=== PATIENT | male | born 1980 | race Caucasian/White ===

== ENCOUNTER 2017-11-22 01:00 | Emergency (ER) | payer OTHER ==
[~2017-11-22] VITALS: Ht 190.5 cm; Wt 171.7 kg
[2017-11-22 01:13] VITALS: BP 119/80
[2017-11-22] MEDS ORDERED: ACET-2858 PO (01:13)
[2017-11-22] MEDS ORDERED: HYDR-3293 PO (01:13)
[2017-11-22] MEDS ORDERED: AMLO10TA PO (01:13)
[2017-11-22] MEDS ORDERED: KETOROLAC 60 MG/2 ML VIAL IM ONE (01:20)
[2017-11-22] MEDS ORDERED: CYCLOBENZAPRINE 10 MG TAB PO ONE (01:20)
[2017-11-22 01:51] VITALS: BP 125/83
== END 2017-11-22 01:51 | disposition home or self-care (01) ==
LOC: MED 01:00
DX: M25.511 Pain in right shoulder (principal); I10 Essential (primary) hypertension; Z85.528 Personal history of other malignant neoplasm of kidney; X58.XXXA Exposure to other specified factors, initial encounter; Y93.43 Activity, gymnastics; Y92.89 Other specified places as the place of occurrence of the external cause; Y99.8 Other external cause status
CPT/HCPCS: 96372; 99285; J1885